=== PATIENT | female | born 1965 | race African-American/Black ===

== ENCOUNTER 2018-12-12 07:11 | Day surgery (SDC) | payer BC, OTHER ==
[2018-12-11 11:27] VITALS: BMI 26.6
[2018-12-12] MEDS ORDERED: MIDAZOLAM HCL 2 MG/2 ML SINGLE DOSE VIAL ONE ×2 (08:31→09:49)
--- NOTE | 2018-12-12 08:59 | HP ---
Past Medical History - Primary Care Physician PCP:: Danial Denise - Admission Chief Complaint: EM polyp, fibroid uterus History of Present Illness: 53 yo f with hx of multiple fibroid uterus, sono 1 cm EM lesion r/o EM polyp vs submucos myoma,procedure risks has been explained to patient History Source: Patient Limitations to Obtaining History: No Limitations - Past Surgical History Hx Myomectomy: No Hx Transabdominal Cerclage: No - Smoking History Smoking history: Never smoked - Alcohol/Substance Use Hx Alcohol Use: Yes (OCCAS) - Social History History of Recent Travel: No Home Medications - Allergies Allergies/Adverse Reactions: Allergies Allergy/AdvReac Type Severity Reaction Status Date / Time SEASONAL Allergy Uncoded 12/12/18 08:31 - Home Medications Home Medications: Ambulatory Orders Bimatoprost [Lumigan] 1 drop OU HS 12/11/18 Brimonidine Tartrate [Alphagan 0.15% -] 1 drop OD BID 12/11/18 Cyclosporine [Restasis] 1 each OU BID 12/11/18 Dorzolamide HCl/Timolol Maleat [Cosopt Eye Drops] 10 ml OD BID 12/11/18 Review of Systems - Review of Systems Constitutional: reports: No Symptoms Eyes: reports: No Symptoms HENT: reports: No Symptoms Neck: reports: No Symptoms Cardiovascular: reports: No Symptoms Respiratory: reports: No Symptoms Gastrointestinal: reports: No Symptoms Genitourinary: reports: No Symptoms Breasts: reports: No Symptoms Reported Musculoskeletal: reports: No Symptoms Integumentary: reports: No Symptoms Neurological: reports: No Symptoms Endocrine: reports: No Symptoms Hematology/Lymphatic: reports: No Symptoms Psychiatric: reports: No Symptoms Physical Exam-[employer] Vital Signs: Vital Signs Temperature 98.2 F 12/12/18 08:30 Pulse Rate 71 12/12/18 08:30 Respiratory Rate 20 12/12/18 08:30 Blood Pressure 127/70 12/12/18 08:30 O2 Sat by Pulse Oximetry (%) 99 12/12/18 08:11 Constitutional: Yes: Well Nourished, No Distress, Calm Eyes: Yes: WNL, Conjunctiva Clear, EOM Intact HENT: Yes: WNL, Atraumatic, Normocephalic Neck: Yes: WNL, Supple, Trachea Midline Cardiovascular: Yes: WNL, Regular Rate and Rhythm Respiratory: Yes: WNL, Regular, CTA Bilaterally Gastrointestinal: Yes: WNL ...Rectal Exam: Yes: WNL Renal/: Yes: WNL Pelvis: Yes: WNL External Genitalia: Yes: Normal Internal Exam Deferred: No Vaginal Exam: Yes: Normal Cervix: Yes: Normal Uterus: Yes: Enlarged, Lumpy, Mass Adnexa: Not Palpable: Left, Right Breast(s): Yes: WNL Musculoskeletal: Yes: WNL Extremities: Yes: WNL Integumentary: Yes: WNL Neurological: Yes: WNL, Alert, Oriented ...Motor Strength: WNL Psychiatric: Yes: WNL, Alert, Oriented Problem List - Problem (1) Fibroid uterus Code(s): D25.9 - LEIOMYOMA OF UTERUS, UNSPECIFIED Assessment/Plan hysteroscopy D&C , polypectomy
[2018-12-12] MEDS ORDERED: DEXAMETHASONE SOD PHOSPHATE 4 MG/1 ML VIAL ONE (09:49)
[2018-12-12] MEDS ORDERED: fentaNYL CITRATE 250 MCG/5 ML VIAL ONE (09:49)
[2018-12-12] MEDS ORDERED: KETOROLAC TROMETHAMINE 30 MG/1 ML VIAL ONE (10:23)
[2018-12-12] MEDS ORDERED: oxyCODONE HCL 5 MG TABLET PO PRN (10:43)
[2018-12-12] MEDS ORDERED: IBUPROFEN 800 MG/8 ML IJ IVPB PRN (10:43)
[2018-12-12] MEDS ORDERED: IBUPROFEN 600 MG TABLET (FP) PO PRN (10:43)
[2018-12-12] MEDS ORDERED: ONDANSETRON 4 MG/2 ML VIAL IVPUSH PRN (10:43)
[2018-12-12] MEDS ORDERED: ELECTROLYTE-148 SOLN 1,000 ML IV SCH (10:45)
--- NOTE | 2018-12-12 11:20 | OP ---
DATE OF OPERATION: 12/12/2018 PREOPERATIVE DIAGNOSES: Endometrial polyp, fibroid uterus; rule out submucous myoma. POSTOPERATIVE DIAGNOSES: Endometrial polyp, fibroid uterus; rule out submucous myoma. PROCEDURE: Hysteroscopy, dilatation and curettage, and polypectomy. SURGEON: Danial Denise MD ANESTHESIA: General. ANESTHESIOLOGIST: Malcolm Abdullahi MD ESTIMATED BLOOD LOSS: 25 mL DESCRIPTION OF OPERATION: Patient was taken to the operating room. Under adequate general anesthesia, examination under anesthesia revealed the external genitalia to be normal. Vagina was normal. Cervix was clean; no lesion. Uterus enlarged, approximately 14 weeks' size with multiple myomas. Adnexa: No masses were palpable. Then, with a weighted speculum in the vagina, anterior lip of the cervix was grasped with a single-tooth tenaculum. Cervix was gradually dilated with Hegar dilators. Then, hysteroscope was introduced. Visualization of endocervical canal appeared to be normal. There was a 1-cm endometrial polyp noted at the mid-portion of the uterus. Uterus was indented at the fundus consistent with intramural myoma impinging into the endometrial area. Endometrium was atrophic for the most part. Both cornual regions were identified. No other abnormality was noted. Then, the cervix was dilated with Hegar dilator. Endometrial polyp was removed, and then, the D&C was done. Patient tolerated the procedure well, left the OR in good condition. DANIAL DENISE M.D. [id number]
[2018-12-12 12:35] VITALS: TEMP 98
[2018-12-12 12:41] VITALS: BP 120/68; PULSE 70
--- NOTE | 2018-12-13 18:50 | PATH ---
Surgical Pathology Report Patient Name: AGNIESZKA SOSA [facility]. Rec. #: [id number] /Age/Gender: 1965 (Age: 53) / F Account: [id number] Location: [facility] Taken: 12/12/2018 Received: 12/12/2018 Reported: 12/13/2018 Physicians: Danial Denise M.D. Specimen(s) Received ENDOMETRIAL CURETTINGS AND POLYP Clinical History Fibroid uterus, polyp Final Diagnosis ENDOMETRIAL CURETTINGS AND POLYP, DILATION AND CURETTAGE: FRAGMENTS OF ENDOMETRIAL POLYP, INACTIVE ENDOMETRIUM, SUPERFICIAL MYOMETRIUM, AND SCANT BENIGN CERVICAL TISSUE. Electronically Signed Cristiane Talavera M.D. Gross Description Received in formalin labeled "endometrial curettings and polyp," is a 2.0 x 1.3 x 0.3 cm aggregate of tidwell red soft tissue fragments admixed with blood clot. The formalin is filtered and the specimen is entirely submitted in one cassette. /12/12/201812/12/2018
== END 2018-12-12 12:42 | disposition home or self-care (01) ==
LOC: JASU-SURG 07:11
PROVIDERS: ATTEND Obstetrics & Gynecology
PROC: 0UJD8ZZ Inspection of Uterus and Cervix, Via Natural or Artificial Opening Endoscopic (ICD-10-PCS; 2018-12-12)
PROC: 0UB97ZX Excision of Uterus, Via Natural or Artificial Opening, Diagnostic (ICD-10-PCS; principal; 2018-12-12 09:00)
PROC: 0UDB7ZX Extraction of Endometrium, Via Natural or Artificial Opening, Diagnostic (ICD-10-PCS; 2018-12-12 09:00)
DX: N84.0 Polyp of corpus uteri (principal); D25.9 Leiomyoma of uterus, unspecified
CPT/HCPCS: 88305-TC; 94760

== ENCOUNTER 2022-08-03 04:11 | Day surgery (SDC) | payer BC, OTHER ==
[2022-07-29 11:21] VITALS: BMI 25.4
[2022-08-03] MEDS ORDERED: LIDOCAINE HCL 2% 100 MG/5 ML DISP.SYRIN ONE (11:21)
[2022-08-03] MEDS ORDERED: MIDAZOLAM HCL 2 MG/2 ML SINGLE DOSE VIAL ONE (11:22)
[2022-08-03] MEDS ORDERED: PROPOFOL 20 ML ONE (11:22)
[2022-08-03] MEDS ORDERED: DEXAMETHASONE SOD PHOSPHATE 4 MG/1 ML VIAL ONE (12:01)
[2022-08-03] MEDS ORDERED: KETOROLAC TROMETHAMINE 30 MG/1 ML VIAL ONE (12:01)
[2022-08-03] MEDS ORDERED: ONDANSETRON 4 MG/2 ML VIAL ONE (12:01)
[2022-08-03] MEDS ORDERED: ceFAZolin 2 GRAM PREMIX BAG IVPB ONE (12:30)
[2022-08-03] MEDS ORDERED: PROMETHAZINE HCL 25 MG/1 ML VIAL IVPUSH PRN (12:42)
[2022-08-03] MEDS ORDERED: oxyCODONE HCL 5 MG TABLET PO PRN ×2 (12:42)
[2022-08-03] MEDS ORDERED: ONDANSETRON 4 MG/2 ML VIAL IVPUSH PRN (12:42)
[2022-08-03] MEDS ORDERED: ACETAMINOPHEN 1000 MG/100 ML BAG IVPB ONE (12:43)
[2022-08-03] MEDS ORDERED: LACTATED RINGERS SOLUTION 1,000 ML IV SCH (12:45)
[2022-08-03] MEDS ORDERED: ACETAMINOPHEN INJECTION 100 ML IVPB ONE (13:21)
[2022-08-03 13:58] LABS: HEMATOCRIT 40.5 % (32.4-45.2); HEMOGLOBIN 13.1 GM/dL (10.7-15.3); MCH 29.8 pg (25.7-33.7); MCHC 32.2 g/dl (32.0-36.0); MEAN CELL VOLUME 92.6 fl (80-96); MEAN PLT VOLUME 8.2 fl (7.5-11.1); PLATELET COUNT 239 10^3/uL (134-434); RBC 4.38 M/mm3 (3.60-5.2); RDW 12.9 % (11.6-15.6)
[2022-08-03 17:44] LABS: BASO % 0.1 % (0-2.0); EOS % 0.2 % (0-4.5); HEMATOCRIT 38.5 % (32.4-45.2); HEMOGLOBIN 12.9 GM/dL (10.7-15.3); LYMPH % 14.7 % (8-40); MCH 30.6 pg (25.7-33.7); MCHC 33.4 g/dl (32.0-36.0); MEAN CELL VOLUME 91.5 fl (80-96); MEAN PLT VOLUME 7.8 fl (7.5-11.1); MONO % 1.7 % (3.8-10.2); NEUT % 83.3 % (42.8-82.8); PLATELET COUNT 244 10^3/uL (134-434); RBC 4.21 M/mm3 (3.60-5.2); RDW 13.1 % (11.6-15.6); WHITE BLOOD COUNT 6.2 K/mm3 (4.0-10.0)
[2022-08-03 18:11] VITALS: BP 133/75; PULSE 67; RESP 18; TEMP 98.2
== END 2022-08-03 18:00 | disposition home or self-care (01) ==
LOC: JASU-SURG 04:11
PROVIDERS: ATTEND Obstetrics & Gynecology
PROC: 0UN98ZZ Release Uterus, Via Natural or Artificial Opening Endoscopic (ICD-10-PCS; principal; 2022-08-03 11:00)
DX: N95.0 Postmenopausal bleeding (principal); N85.6 Intrauterine synechiae; Z53.8 Procedure and treatment not carried out for other reasons
CPT/HCPCS: 36415; 85025; 85027; 88305-TC; 94760